=== PATIENT | female | born 1985 | race Caucasian/White ===

== ENCOUNTER → 2021-12-14 | Outpatient (RCR) | payer OTHER | LOC: PT 16:26 | PROVIDERS: ATTEND Specialist | DX: S39.012A Strain of muscle, fascia and tendon of lower back, initial encounter (principal) ==

== ENCOUNTER 2022-01-10 09:00 | Outpatient (RCR) | payer OTHER | END 2022-01-14 | LOC: PT 09:00 | PROVIDERS: ATTEND Specialist | DX: S39.012A Strain of muscle, fascia and tendon of lower back, initial encounter (principal) | CPT/HCPCS: 97139 ==

== ENCOUNTER 2022-02-09 08:00 | Outpatient (RCR) | payer OTHER | END 2022-02-14 | LOC: PT 08:00 | PROVIDERS: ATTEND Specialist | DX: S39.012A Strain of muscle, fascia and tendon of lower back, initial encounter (principal) ==

== ENCOUNTER → 2022-03-16 | Outpatient (RCR) | payer OTHER | LOC: PT 02-15 06:58 | PROVIDERS: ATTEND Specialist | DX: M54.50 Low back pain, unspecified (principal); M62.81 Muscle weakness (generalized) ==